=== PATIENT | male | born 1960 | race Caucasian/White ===

== ENCOUNTER 2017-06-07 01:25 | Emergency (ER) | payer BC, OTHER ==
[~2017-06-07] VITALS: Ht 157.5 cm; Wt 68.7 kg
[2017-06-07 01:27] VITALS: Ht 157.5 cm; Wt 68.7 kg
[2017-06-07] MEDS ORDERED: ONDANSETRON 4 MG INJ IV STA (02:13)
[2017-06-07] MEDS ORDERED: morphine 4 MG/ML VIAL IV STA (02:13)
[2017-06-07] MEDS ORDERED: SOD CHLORIDE 0.9% 1,000 ML IV STA (02:13)
[2017-06-07 02:40] LABS: BASOPHIL # 0.1 10^3/ul (0.0-0.1); BASOPHILS % 0.6 % (0.0-2.0); EOSINOPHILS # 0.3 10^3/ul (0.0-0.5); EOSINOPHILS % 1.8 % (0.0-7.0); HEMATOCRIT 44.3 % (42.0-52.0); LYMPHOCYTES # 2.5 10^3/ul (0.8-2.9); LYMPHOCYTES % 17.6 % (15.0-51.0); MEAN CORPUSCULAR HEMOGLOBIN 29.2 pg (29.0-33.0); MEAN CORPUSCULAR HGB CONC 33.9 g/dl (32.0-37.0); MEAN CORPUSCULAR VOLUME 86.2 fl (82.0-101.0); MEAN PLATELET VOLUME 9.9 fl (7.4-10.4); MONOCYTE # 0.9 10^3/ul (0.3-0.9); MONOCYTES % 6.2 % (0.0-11.0); NEUTROPHIL # 10.5 10^3/ul (1.6-7.5); NEUTROPHILS % 73.3 % (39.0-77.0); PLATELET COUNT 313 10^3/UL (140-415); RED BLOOD COUNT 5.14 10^6/ul (4.70-6.10); RED CELL DISTRIBUTION WIDTH 11.9 % (11.5-14.5); WHITE BLOOD COUNT 14.3 10^3/ul (4.8-10.8)
[2017-06-07 03:00] LABS: ALBUMIN 4.3 g/dl (3.3-4.9); ALBUMIN/GLOBULIN RATIO 1.13; BILIRUBIN,INDIRECT 0.2 mg/dl (0-1.1); BILIRUBIN,TOTAL 0.2 mg/dl (0.2-1.3); CALCIUM 8.6 mg/dl (8.4-10.2); CREATININE 0.98 mg/dl (0.61-1.24); POTASSIUM 3.7 mmol/L (3.5-5.1); TOTAL PROTEIN 8.1 g/dl (6.1-8.1)
--- NOTE | 2017-06-07 03:25 | RADRPT ---
PROCEDURE: CT ABDOMEN/PELVIS WITHOUT CONTRAST CLINICAL INDICATION: 56-year-old male with abdominal pain. TECHNIQUE: The study was performed utilizing a [employer] VCT 64-slice CT scanner. Direct axia l sections were obtained through the abdomen and pelvis without the use of intravenous contrast mate rial. Sagittal and coronal reformations were obtained. One or more of the following dose reduction t echniques were utilized: automated exposure control, adjustment of the mA and/or kV according to pat ient's size and/or the use of iterative reconstruction technique. DICOM images are available. The im ages were reviewed on a PACS workstation. CTD/vol = 9.1 mGy; Total Exam DLP = 581.8 mGy-cm. COMPARISON: None. FINDINGS: The lung bases are unremarkable. There is no evidence for significant pleural effusion. The liver has a normal size and contour without focal areas of abnormal density. No intrahepatic nor extrahepa tic biliary ductal dilatation is seen. The gallbladder demonstrates no wall thickening nor perichole cystic fluid. No biliary stones are evident. The pancreas is without areas of abnormal attenuation. The spleen is identified and has a normal size without abnormal density. The adrenal glands are unr emarkable. There is mild right-sided hydroureteronephrosis with an obstructing right ureterovesical junction calculus measuring approximately 4 x 4 x 4 mm. The left kidney is without abnormal density, calculi or obstruction. The urinary bladder contains a small volume of urine. There is retained sto ol within the ascending and transverse colon without obstruction. The appendix is visualized and is without abnormal thickening or surrounding inflammatory reaction. There is no significant free fluid. The prostate is not enlarged however there are central calcifications within it. There is a s mall right and minimal left inguinal hernia containing fat. The aortoiliac vessels are minimally dayton cified but without aneurysmal dilatation. The osseous structures are intact. IMPRESSION: 1. Mild right-sided hydroureteronephrosis with an obstructing right 4 mm ureterovesicle junction ca lculus. 2. Retained stool within the proximal colon without obstruction. 3. No CT evidence for appendicitis. 4. Small right and minimal left inguinal hernias containing fat. .Hussein Cesar MD, Date Time Electronically viewed and signed by .Hussein Cesar MD, on 06/07/2017 03:25 .M/
[2017-06-07] MEDS ORDERED: KETOROLAC 30 MG INJ IV STA (03:30)
--- NOTE | 2017-06-07 05:27 | ERD ---
ER Documentation Chief Complaint Chief Complaint RLQ pain tonight with nausea denies vomiting HPI 56-year-old male right lower quadrant pain today with nausea. He denies vomiting. Pain is mild to moderate moderate in nature and colicky. Mild associated nausea but no vomiting. No fevers no chills. No sick contacts. No change in bowel or bladder habits. ROS All systems reviewed and are negative except as per history of present illness. Medications Home Meds No Active Prescriptions or Reported Meds Allergies Allergies: Coded Allergies: No Known Allergy (Unverified , 07/27/14) PMhx/Soc History of Surgery: No Anesthesia Reaction: No Hx Neurological Disorder: No Hx Respiratory Disorders: No Hx Cardiac Disorders: No Hx Psychiatric Problems: No Hx Miscellaneous Medical Probl: No Hx Alcohol Use: Yes (social) Hx Substance Use: No Hx Tobacco Use: No Smoking Status: Never smoker Physical Exam Vitals Vital Signs Date Time Temp Pulse Resp B/P Pulse Ox O2 Delivery O2 Flow Rate FiO2 06/07/17 05:03 75 17 126/79 99 Room Air 06/07/17 03:39 62 18 136/80 99 Room Air 06/07/17 01:27 98.7 67 16 134/77 98 Physical Exam Const: [] Head: Atraumatic Eyes: Normal Conjunctiva ENT: Normal External Ears, Nose and Mouth. Neck: Full range of motion..~ No meningismus. Resp: Clear to auscultation bilaterally Cardio: Regular rate and rhythm, no murmurs Abd: Soft, non tender, non distended. Normal bowel sounds Skin: No petechiae or rashes Back: No midline or flank tenderness Ext: No cyanosis, or edema Neur: Awake and alert Psych: Normal Mood and Affect Result Diagram: 06/07/1722406/07/17224 Results 24 hrs Laboratory Tests Test 06/07/17 02:25 White Blood Count 14.310^3/ul Red Blood Count 5.1410^6/ul Hemoglobin 15.0g/dl Hematocrit 44.3% Mean Corpuscular Volume 86.2fl Mean Corpuscular Hemoglobin 29.2pg Mean Corpuscular Hemoglobin Concent 33.9g/dl Red Cell Distribution Width 11.9% Platelet Count 91777^3/UL Mean Platelet Volume 9.9fl Neutrophils % 73.3% Lymphocytes % 17.6% Monocytes % 6.2% Eosinophils % 1.8% Basophils % 0.6% Nucleated Red Blood Cells % 0.0/100WBC Neutrophils # 10.510^3/ul Lymphocytes # 2.510^3/ul Monocytes # 0.910^3/ul Eosinophils # 0.310^3/ul Basophils # 0.110^3/ul Nucleated Red Blood Cells # 0.010^3/ul Sodium Level 143mmol/L Potassium Level 3.7mmol/L Chloride Level 105mmol/L Carbon Dioxide Level 27mmol/L Anion Gap 15 Blood Urea Nitrogen 14mg/dl Creatinine 0.98mg/dl Glucose Level 126mg/dl Calcium Level 8.6mg/dl Total Bilirubin 0.2mg/dl Direct Bilirubin 0.00mg/dl Indirect Bilirubin 0.2mg/dl Aspartate Amino Transf (AST/SGOT) 25IU/L Alanine Aminotransferase (ALT/SGPT) 38IU/L Alkaline Phosphatase 113IU/L Total Protein 8.1g/dl Albumin 4.3g/dl Globulin 3.80g/dl Albumin/Globulin Ratio 1.13 Lipase 56U/L Current Medications Medications (Trade) Dose Ordered Sig/Steve Route PRN Reason Start Time Stop Time Status Last Admin Dose Admin Sodium Chloride (NS) 1,000 ml @ 1,000 mls/hr Q1H STAT IV 06/07/17 02:13 06/07/17 03:12 DC 06/07/17 02:33 Morphine Sulfate (morphine) 4 mg ONCE STAT IV 06/07/17 02:13 06/07/17 02:14 DC 06/07/17 02:33 Ondansetron HCl (Zofran Inj) 4 mg ONCE STAT IV 06/07/17 02:13 06/07/17 02:14 DC 06/07/17 02:34 Ketorolac Tromethamine (Toradol) 30 mg ONCE STAT IV 06/07/17 03:30 06/07/17 03:43 DC 06/07/17 03:47 Procedures/MDM Medical decision makin-year-old male with kidney stone. At this point is clinically stable. Discharge home with Flomax Cipro. Told return in 8 hours for serial abdominal exams. Departure Diagnosis: Primary Impression: Abdominal pain Abdominal location: unspecified location Qualified Code: R10.9 - Abdominal pain, unspecified abdominal location Condition: Stable JEANNE SIMMONS 13, 2017 05:27
[2017-06-07] MEDS ORDERED: TAMS-14 PO (05:32)
[2017-06-07] MEDS ORDERED: CIPR500T4 PO (05:32)
[2017-06-07] MEDS ORDERED: HYDR-902 PO (05:32)
[2017-06-07 05:41] VITALS: BP 137/76; PULSE 99; RESP 17; TEMP 98.2
== END 2017-06-07 05:43 | disposition home or self-care (01) ==
LOC: E/R 01:25
DX: R10.31 Right lower quadrant pain (principal); R11.0 Nausea
CPT/HCPCS: 36415; 74176; 80053; 83690; 85025; 96374; 96375; 99285; J1885; J2270; J2405; J7030